=== PATIENT | female | born 1990 | race Caucasian/White ===

== ENCOUNTER 2017-01-27 16:44 | Inpatient (IN) | payer BC ==
[2017-01-27] MEDS ORDERED: Butorphanol 1 MG/ML SDV IVPUSH PRN (17:45)
[2017-01-27] MEDS ORDERED: Nalbuphine 10 MG/1 ML Vial IVPUSH PRN (17:45)
[2017-01-27] MEDS ORDERED: Water For Irrigation,Sterile 1,000 ML Container IRR PRN (17:45)
[2017-01-27] MEDS ORDERED: Sodium Chloride 0.9% 2.5 ML Syringe FLUSH PRN (17:45)
[2017-01-27] MEDS ORDERED: Oxytocin/0.9 % Sodium Chloride 30 UNIT/500 ML BAG IV SCH (17:45)
[2017-01-27] MEDS ORDERED: Sodium Chloride 0.9% 10 ML Syringe FLUSH PRN (17:45)
[2017-01-27] MEDS ORDERED: Methylergonovine 0.2 MG/1 ML Amp IM PRN (17:45)
[2017-01-27] MEDS ORDERED: Misoprostol 200 MCG Tab PO PRN (17:45)
[2017-01-27] MEDS ORDERED: Lactated Ringers 1,000 ML IV SCH (17:45)
[2017-01-27] MEDS ORDERED: Lidocaine 1% 50 ML MDV INJECT PRN (17:45)
[2017-01-27] MEDS ORDERED: Carboprost Tromethamine 250 MCG/1 ML Amp IM PRN (17:45)
[2017-01-27] MEDS ORDERED: fentaNYL 100 MCG/2 ML SDV ONE (21:27)
[2017-01-27] MEDS ORDERED: Ropivacaine 0.2% 2 MG/ML 20 ML SDV ONE (21:28)
[2017-01-27] MEDS ORDERED: Ropivacaine HCl/PF 100 ML ONE (21:28)
--- NOTE | 2017-01-27 22:10 | PCM.PREANE ---
Preanesthetic Assessment - Anesthesia/Transfusion/Family Hx Anesthesia History: Prior Anesthesia Without Reaction Family History of Anesthesia Reaction: No Transfusion History: No Prior Transfusion(s) Additional History: Denies any personal or family hx of bleeding or clotting problems - Review of Systems General: No Symptoms Pulmonary: No Symptoms Cardiovascular: No Symptoms Gastrointestinal: No Symptoms Neurological: No Symptoms Other: Reports: None - Physical Assessment Height: 1.63 m Weight: 99.79 kg ASA Class: 2 Mental Status: Alert & Oriented x3 Airway Class: Mallampati = 2 Dentition: Reports: Normal Dentition - Lab Values: Laboratory Last Values WBC 10.72 K/uL (4.0-11.0) 01/27/17 18:03 RBC 4.52 M/uL (4.30-5.90) 01/27/17 18:03 Hgb 13.6 g/dL (12.0-16.0) 01/27/17 18:03 Hct 39.1 % (36.0-46.0) 01/27/17 18:03 MCV 86.5 fL (80.0-98.0) 01/27/17 18:03 MCH 30.1 pg (27.0-32.0) 01/27/17 18:03 MCHC 34.8 g/dL (31.0-37.0) 01/27/17 18:03 RDW Std Deviation 40.7 fl (28.0-62.0) 01/27/17 18:03 RDW Coeff of Otis 13 % (11.0-15.0) 01/27/17 18:03 Plt Count 210 K/uL (150-400) 01/27/17 18:03 MPV 11.50 fL (7.40-12.00) 01/27/17 18:03 Nucleated RBC % 0.0 /100WBC 01/27/17 18:03 Nucleated RBCs # 0 K/uL 01/27/17 18:03 Urine Color YELLOW 01/27/17 19:05 Urine Appearance CLEAR 01/27/17 19:05 Urine pH 6.0 (5.0-8.0) 01/27/17 19:05 Ur Specific Hudson 1.015 (1.001-1.035) 01/27/17 19:05 Urine Protein NEGATIVE mg/dL (NEGATIVE) 01/27/17 19:05 Urine Glucose (UA) NEGATIVE mg/dL (NEGATIVE) 01/27/17 19:05 Urine Ketones NEGATIVE mg/dL (NEGATIVE) 01/27/17 19:05 Urine Occult Blood MODERATE (NEGATIVE) 01/27/17 19:05 Urine Nitrite NEGATIVE (NEGATIVE) 01/27/17 19:05 Urine Bilirubin NEGATIVE (NEGATIVE) 01/27/17 19:05 Urine Urobilinogen 0.2 EU/dL (<2.0) 01/27/17 19:05 Ur Leukocyte Esterase SMALL (NEGATIVE) 01/27/17 19:05 Membrane Rupture POSITIVE 01/27/17 17:03 Blood Type O POSITIVE 01/27/17 18:03 Antibody Screen NEGATIVE 01/27/17 18:03 - Allergies Allergies/Adverse Reactions: Allergies Allergy/AdvReac Type Severity Reaction Status Date / Time Sulfa (Sulfonamide Allergy Mild Itching Verified 07/30/14 23:16 Antibiotics) sulfasalazine Allergy Itching Verified 07/30/14 23:16 [From Sulfazine] unknown antibiotic Allergy Hives Uncoded 07/30/14 23:34 - Acknowledgements Anesthesia Type Planned: Epidural Pt an Appropriate Candidate for the Planned Anesthesia: Yes Alternatives and Risks of Anesthesia Discussed w Pt/Guardian: Yes Pt/Guardian Understands and Agrees with Anesthesia Plan: Yes 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: Endocrine/Metabolic History: Reports: Obesity/BMI 30+, Other (See Below) Other Endocrine/Metabolic History: Thyroid nodule - Past Surgical History Other Head Surgeries/Procedures: Thyroid nodule bx a few months ago (negative) HEENT Surgical History: Reports: Oral Surgery, Other (See Below) Other HEENT Surgeries/Procedures: wisdom teeth extraction - SUBSTANCE USE Smoking Status *Q: Never Smoker Second Hand Smoke Exposure: No Days Per Week of Alcohol Use: 1 Number of Drinks Per Day: 2 Total Drinks Per Week: 2 Recreational Drug Use History: No - HOME MEDS Home Medications: Home Meds Control Pills 07/30/14 [History] - CURRENT (IN HOUSE) MEDS Current Meds: Current Medications Butorphanol Tartrate (Stadol) 1 mg IVPUSH Q1H PRN PRN Reason: Pain Carboprost Tromethamine (Hemabate Ds) 250 mcg IM ASDIRECTED PRN PRN Reason: Post Hemorrhage Lactated Ringer's (Ringers, Lactated) 1,000 mls @ 150 mls/hr IV ASDIRECTED [facility] Oxytocin/Sodium Chloride (Oxytocin 30 Unit/500 Ml-Ns) 30 unit in 500 mls @ 999 mls/hr IV TITRATE [facility] Lidocaine HCl (Xylocaine 1%) 50 ml INJECT .ONCE PRN PRN Reason: Laceration repair Methylergonovine Maleate (Methergine) 0.2 mg IM ASDIRECTED PRN PRN Reason: Post Hemorrhage Misoprostol (Cytotec) 200 mcg PO .ONCE PRN PRN Reason: Post Hemorrhage Nalbuphine HCl (Nubain) 10 mg IVPUSH Q1H PRN PRN Reason: Pain (severe 7-10) Sodium Chloride (Saline Flush) 10 ml FLUSH ASDIRECTED PRN PRN Reason: Keep Vein Open Sodium Chloride (Saline Flush) 2.5 ml FLUSH ASDIRECTED PRN PRN Reason: Keep Vein Open Sterile Water (Sterile Water For Irrigation) 1,000 ml IRR ASDIRECTED PRN PRN Reason: delivery Discontinued Medications Fentanyl (Sublimaze) Confirm Administered Dose 300 mcg .ROUTE .STK-MED ONE Stop: 01/27/17 21:28 Ropivacaine (Naropin 0.2%) Confirm Administered Dose 100 mls @ as directed .ROUTE .STK-MED ONE Stop: 01/27/17 21:29 Ropivacaine (Naropin 0.2%) Confirm Administered Dose 20 ml .ROUTE .STK-MED ONE Stop: 01/27/17 21:29
[2017-01-28] MEDS ORDERED: Docusate Sodium 100 MG Cap PO PRN (04:03)
[2017-01-28] MEDS ORDERED: Bisacodyl 10 MG Supp RECTAL PRN (04:03)
[2017-01-28] MEDS ORDERED: Acetaminophen 500 MG Tab PO PRN ×2 (04:03)
[2017-01-28] MEDS ORDERED: oxyCODONE 5 MG Tab PO PRN (04:03)
[2017-01-28] MEDS ORDERED: Witch Hazel Medicated Pads 40/Jar TOP PRN (04:03)
[2017-01-28] MEDS ORDERED: Benzocaine/Menthol 20%-0.5% Spray 78 GM Cannister TOP PRN (04:03)
[2017-01-28] MEDS ORDERED: Lanolin 100% Cream 7 GM Tube TOP PRN (04:03)
[2017-01-28] MEDS ORDERED: Ibuprofen 400 MG Tab PO PRN (04:03)
[2017-01-28] MEDS ORDERED: Aluminum Hydroxide/Magnesium Hydroxide/Simethicone Susp 30 ML Cup PO PRN (04:03)
--- NOTE | 2017-01-28 04:53 | OR ---
SURGEON: Cristal Amato M.D. DATE OF PROCEDURE: 01/28/2017 PREOPERATIVE DIAGNOSES: 1. A 40-week intrauterine . 2. Spontaneous rupture of membranes. 3. Active labor. POSTOPERATIVE DIAGNOSES: 1. A 40-week intrauterine . 2. Spontaneous rupture of membranes. 3. Active labor. PROCEDURE: Spontaneous vaginal delivery, second-degree midline laceration repaired. CANDLE EXTRUSION MACHINE OPERATOR: BENJAMIN Pastrana4. ANESTHESIA: Epidural. ESTIMATED BLOOD LOSS: 400 mL. COMPLICATION: None. FINDINGS: Term male, score 9 at 1 minute and 9 at 5 minutes with a weight of 3320 grams, spontaneous delivery, intact placenta, three-vessel cord. DISPOSITION: Mom in LDRP and infant in nursery. PROCEDURE DETAILS: Ana Maria is a 26-year-old, G1, P0, at 39 and 6 weeks gestational age, who presented on the evening of 01/27/2017 with leakage of fluid that started approximately at 3:45 in the afternoon. On examination, she was found to have a positive AmniSure, clear fluid was returned. She was admitted, routine labs were drawn. Category 1 heart tones. The patient was observed and did begin ashish regularly and became increasingly uncomfortable and making cervical change. She underwent regional anesthesia in the form of epidural, became more comfortable, and continued to progress through the early childhood assistant hours. Shortly after 1 a.m., she was found to be complete. She began pushing efforts. Shortly after and pushed adequately for the next approximately an hour and a half, at that time she was able to push to a +3 station. I was called for delivery. Upon my arrival, the patient was placed in modified dorsal lithotomy position. She was prepped and draped in the usual aseptic manner. Continued with pushing efforts and was able deliver the infant's head atraumatically, spontaneously, followed by anterior shoulder, posterior shoulder, and remainder of the body without difficulty. The infant's oropharynx and nares bulb suctioned. Cord was clamped x2 and cut. was handed off to his mother with attending nursing staff at her side. Cord arterial, cord venous, and cord blood sampling was obtained. Light suprapubic pressure was applied while the placenta was delivered spontaneously intact. Vigorous fundal uterine massage was then applied while 30 units of Pitocin was delivered in 500 mL of IV fluid. Upon inspection of cervix, vaginal sidewalls, and perineum, there was found to be a second-degree midline laceration. This was repaired using 3-0 Vicryl in the usual fashion. Uterus remained firm at this juncture. Hemostasis was evident. Sponge count and needle counts were correct. The patient will remain in LDRP. in nursery. RUTH / MICHEL /[id number]
[2017-01-28] MEDS: Ibuprofen 800 MG Tab PO PRN ×2 (05:14→13:15)
--- NOTE | 2017-01-28 16:55 | PCM48HPAN ---
Post Anesthesia Note - EVALUATION WITHIN 48HRS OF ANESTHETIC Vital Signs in Normal Range: Yes Patient Participated in Evaluation: Yes Respiratory Function Stable: Yes Airway Patent: Yes Cardiovascular Function Stable: Yes Hydration Status Stable: Yes Pain Control Satisfactory: Yes Nausea and Vomiting Control Satisfactory: Yes Mental Status Recovered: Yes - COMMENTS/OBSERVATIONS Free Text/Narrative:: Pt reports return of full sensation and motor movement to lower extremities. Denies headache.
[2017-01-29 09:47] VITALS: BP 124/71
--- NOTE | 2017-01-29 10:39 | PCM.PNPP ---
- General Info Date of Service: 01/29/17 Admission Dx/Problem (Free Text): 26 yo P1 s/p , stable Subjective Update: Patient seen at bedside, she has 1-2 episode of involuntary loss of urine , no dysuria or frequency. Functional Status: Reports: Pain Controlled, Tolerating Diet, Ambulating, Urinating - Review of Systems General: Reports: No Symptoms HEENT: Reports: No Symptoms Pulmonary: Reports: No Symptoms Cardiovascular: Reports: No Symptoms Gastrointestinal: Reports: No Symptoms Genitourinary: Reports: No Symptoms Musculoskeletal: Reports: No Symptoms Skin: Reports: No Symptoms Neurological: Reports: No Symptoms - General Info Date of Service: 01/29/17 - Patient Data Vital Signs - Most Recent: Last Vital Signs Temp 36.6 C 01/29/17 08:00 Pulse 83 01/29/17 08:00 Resp 16 01/29/17 08:00 BP 124/71 01/29/17 08:00 Pulse Ox 98 01/29/17 08:00 Weight - Most Recent: 99.79 kg Lab Results - Last 24 Hours: Laboratory Results - last 24 hr 01/28/17 Range/Units 15:09 Hgb 12.1 (12.0-16.0) g/dL Hct 35.0 L (36.0-46.0) % Med Orders - Current: Current Medications Acetaminophen (Tylenol Extra Strength) 500 mg PO Q4H PRN PRN Reason: Pain Acetaminophen (Tylenol Extra Strength) 1,000 mg PO Q4H PRN PRN Reason: Pain Al Hydroxide/Mg Hydroxide (Mag-Al Plus) 30 ml PO Q8H PRN PRN Reason: Heartburn Benzocaine/Menthol (Dermoplast Pain Relief 20%-0.5% Peck) 78 gm TOP ASDIRECTED PRN PRN Reason: Perineal Comfort Measure Last Admin: 01/28/17 05:13 Dose: 1 can Bisacodyl (Dulcolax) 10 mg RECTAL .ONCE PRN PRN Reason: Constipation Carboprost Tromethamine (Hemabate Ds) 250 mcg IM ASDIRECTED PRN PRN Reason: Post Hemorrhage Docusate Sodium (Colace) 100 mg PO BID PRN PRN Reason: Constipation Emollient Ointment (Lansinoh Hpa) 0 gm TOP ASDIRECTED PRN PRN Reason: Sore Nipples Last Admin: 01/28/17 05:14 Dose: 1 tube Lactated Ringer's (Ringers, Lactated) 1,000 mls @ 150 mls/hr IV ASDIRECTED [facility] Oxytocin/Sodium Chloride (Oxytocin 30 Unit/500 Ml-Ns) 30 unit in 500 mls @ 999 mls/hr IV TITRATE [facility] Ibuprofen (Motrin) 400 mg PO Q4H PRN PRN Reason: Pain Ibuprofen (Motrin) 800 mg PO Q6H PRN PRN Reason: Pain Last Admin: 01/28/17 13:15 Dose: 800 mg Methylergonovine Maleate (Methergine) 0.2 mg IM ASDIRECTED PRN PRN Reason: Post Hemorrhage Nalbuphine HCl (Nubain) 10 mg IVPUSH Q1H PRN PRN Reason: Pain (severe 7-10) Oxycodone HCl (Oxycodone) 5 mg PO Q2H PRN PRN Reason: Pain Sodium Chloride (Saline Flush) 2.5 ml FLUSH ASDIRECTED PRN PRN Reason: Keep Vein Open Witch Jovita (Tucks) 1 pad TOP ASDIRECTED PRN PRN Reason: comfort care Last Admin: 01/28/17 05:14 Dose: 1 tub Discontinued Medications Butorphanol Tartrate (Stadol) 1 mg IVPUSH Q1H PRN PRN Reason: Pain Fentanyl (Sublimaze) Confirm Administered Dose 300 mcg .ROUTE .STK-MED ONE Stop: 01/27/17 21:28 Last Admin: 01/28/17 03:47 Dose: Not Given Ropivacaine (Naropin 0.2%) Confirm Administered Dose 100 mls @ as directed .ROUTE .STK-MED ONE Stop: 01/27/17 21:29 Last Admin: 01/28/17 03:47 Dose: Not Given Lidocaine HCl (Xylocaine 1%) 50 ml INJECT .ONCE PRN PRN Reason: Laceration repair Misoprostol (Cytotec) 200 mcg PO .ONCE PRN PRN Reason: Post Hemorrhage Ropivacaine (Naropin 0.2%) Confirm Administered Dose 20 ml .ROUTE .STK-MED ONE Stop: 01/27/17 21:29 Last Admin: 01/28/17 03:47 Dose: Not Given Sodium Chloride (Saline Flush) 10 ml FLUSH ASDIRECTED PRN PRN Reason: Keep Vein Open Sterile Water (Sterile Water For Irrigation) 1,000 ml IRR ASDIRECTED PRN PRN Reason: delivery - Infant Interaction Disposition, : [place] in Room with Family Infant Feeding: Continues to Breastfeed Support Person: , Sister - Recovery Exam Fundal Tone: Firm Fundal Level: 1 Fingerbreadths Below Umbilicus Fundal Placement: Midline Lochia Amount: Scant Lochia Color: Rubra/Red Perineum Description: Other (see below) Other Perinuem Description: 2nd degree laceration Episiotomy/Laceration: Approximated Bladder Status: Voiding Urinary Elimination: Voided - Exam General: Alert, Oriented HEENT: Pupils Equal Neck: Supple Lungs: Clear to Auscultation Cardiovascular: Regular Rate GI/Abdominal Exam: Normal Bowel Sounds Extremities: Normal Inspection Psy/Mental Status: Alert - Problem List & Annotations (1) Vaginal delivery SNOMED Code(s): 982363044 Code(s): O80 - ENCOUNTER FOR FULL-TERM UNCOMPLICATED DELIVERY Status: Acute Current Visit: Yes - Problem List Review Problem List Initiated/Reviewed/Updated: Yes - Assessment Assessment:: 26 yo P1 s/p stable - Plan Plan:: Plan; Pain control as need Sitz bath D/C home today Nothing in vagina for 6 weeks , no tampoons no sex
== END 2017-01-29 15:00 | disposition home or self-care (01) | DRG 560 ==
LOC: MW.OBCHECK 16:44 → MW.OB 16:46 → MW.OBCHECK 18:02 → OBSVTOIN 01-28 03:03 → MW.OB 01-28 07:00
PROVIDERS: ADMIT Obstetrics & Gynecology; ATTEND Obstetrics & Gynecology
PROC: 10E0XZZ Delivery of Products of Conception, External Approach (ICD-10-PCS; principal; 2017-01-28)
PROC: 0KQM0ZZ Repair Perineum Muscle, Open Approach (ICD-10-PCS; 2017-01-28)
DX: O42.02 Full-term premature rupture of membranes, onset of labor within 24 hours of rupture (principal); O70.1 Second degree perineal laceration during delivery; Z3A.39 39 weeks gestation of pregnancy; Z37.0 Single live birth
CPT/HCPCS: 01967; 36415; 51702; 59025; 59409; 81003; 84112; 85014; 85018; 85027; 86850; 86900; 86901; A9270-GY; J2795; J3010

== ENCOUNTER 2018-01-23 21:03 | Emergency (ER) | payer BC ==
[2018-01-23 21:23] VITALS: BP 137/84
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
== END 2018-01-23 23:50 | disposition home or self-care (01) ==
LOC: MW.ED 21:03
DX: O9A.211 Injury, poisoning and certain other consequences of external causes complicating pregnancy, first trimester (principal); S40.012A Contusion of left shoulder, initial encounter; Z3A.11 11 weeks gestation of pregnancy; Z88.2 Allergy status to sulfonamides; Z88.8 Allergy status to other drugs, medicaments and biological substances; V49.49XA Driver injured in collision with other motor vehicles in traffic accident, initial encounter
CPT/HCPCS: 76801; 76801-26; 99283; 99284-25

== ENCOUNTER 2018-08-10 20:39 | Inpatient (IN) | payer BC ==
[2018-08-10] MEDS ORDERED: Carboprost Tromethamine 250 MCG/1 ML Amp IM PRN (20:46)
[2018-08-10] MEDS ORDERED: Ondansetron 4 MG/2 ML SDV IV PRN (20:46)
[2018-08-10] MEDS ORDERED: Nalbuphine 10 MG/1 ML Vial IVPUSH PRN (20:46)
[2018-08-10] MEDS ORDERED: Lidocaine 1% 50 ML MDV INJECT PRN (20:46)
[2018-08-10] MEDS ORDERED: Sodium Chloride 0.9% 10 ML SDV IV PRN (20:46)
[2018-08-10] MEDS ORDERED: Misoprostol 200 MCG Tab PO PRN (20:46)
[2018-08-10] MEDS ORDERED: Butorphanol 1 MG/ML SDV IVPUSH PRN (20:46)
[2018-08-10] MEDS ORDERED: Sodium Chloride 0.9% 2.5 ML Syringe FLUSH PRN (20:46)
[2018-08-10] MEDS ORDERED: Tranexamic Acid 1,000 MG in Sodium Chloride 0.9% 100 ML IV PRN (20:46)
[2018-08-10] MEDS ORDERED: Methylergonovine 0.2 MG/1 ML Amp IM PRN (20:46)
[2018-08-10] MEDS ORDERED: Sodium Chloride 0.9% 10 ML Syringe FLUSH PRN (20:46)
[2018-08-10] MEDS ORDERED: Water For Irrigation,Sterile 1,000 ML Container IRR PRN (20:46)
[2018-08-10] MEDS ORDERED: Oxytocin/0.9 % Sodium Chloride 30 UNIT/500 ML BAG IV SCH (21:00)
[2018-08-10] MEDS ORDERED: Lactated Ringers 1,000 ML IV SCH (21:00)
[2018-08-10] MEDS ORDERED: Lidocaine HCl/EPINEPHrine 5 ML IJ ONE (22:18)
[2018-08-10] MEDS ORDERED: fentaNYL 100 MCG/2 ML SDV ONE (22:20)
--- NOTE | 2018-08-10 22:43 | PCM.PREANE ---
Preanesthetic Assessment - Procedure Proposed Procedure: Initially proposed PIPO, changed plan to intrathecal spinal due to patient labor progression. - Anesthesia/Transfusion/Family Hx Anesthesia History: Prior Anesthesia Without Reaction Transfusion History: No Prior Transfusion(s) - Review of Systems General: No Symptoms Pulmonary: No Symptoms Cardiovascular: No Symptoms Gastrointestinal: Other (GERD) Neurological: No Symptoms Other: Reports: Thyroid Problems (Graves for this . Resolved currently. ) - Physical Assessment ASA Class: 2 Mental Status: Alert & Oriented x3 Airway Class: Mallampati = 2 Dentition: Reports: Normal Dentition Thyro-Mental Finger Breadths: 3 Mouth Opening Finger Breadths: 3 ROM/Head Extension: Full Lungs: Clear to Auscultation, Normal Respiratory Effort Cardiovascular: Regular Rate, Regular Rhythm - Lab Values: Laboratory Last Values WBC 11.03 K/uL (4.0-11.0) H 08/10/18 21:54 RBC 4.88 M/uL (4.30-5.90) 08/10/18 21:54 Hgb 13.1 g/dL (12.0-16.0) 08/10/18 21:54 Hct 39.4 % (36.0-46.0) 08/10/18 21:54 MCV 80.7 fL (80.0-98.0) 08/10/18 21:54 MCH 26.8 pg (27.0-32.0) L 08/10/18 21:54 MCHC 33.2 g/dL (31.0-37.0) 08/10/18 21:54 RDW Std Deviation 37.0 fl (28.0-62.0) 08/10/18 21:54 RDW Coeff of Otis 13 % (11.0-15.0) 08/10/18 21:54 Plt Count 278 K/uL (150-400) 08/10/18 21:54 MPV 11.30 fL (7.40-12.00) 08/10/18 21:54 Nucleated RBC % 0.0 /100WBC 08/10/18 21:54 Nucleated RBCs # 0 K/uL 08/10/18 21:54 - Allergies Allergies/Adverse Reactions: Allergies Allergy/AdvReac Type Severity Reaction Status Date / Time Sulfa (Sulfonamide Allergy Mild Itching Verified 01/23/18 22:36 Antibiotics) sulfasalazine Allergy Itching Verified 01/23/18 22:36 [From Sulfazine] unknown antibiotic Allergy Hives Uncoded 01/23/18 22:36 - Acknowledgements Anesthesia Type Planned: Spinal Pt an Appropriate Candidate for the Planned Anesthesia: Yes Alternatives and Risks of Anesthesia Discussed w Pt/Guardian: Yes Pt/Guardian Understands and Agrees with Anesthesia Plan: Yes PreAnesthesia Questionnaire HEENT History: Reports: None Cardiovascular History: Reports: None Respiratory History: Reports: None Gastrointestinal History: Reports: GERD Genitourinary History: Reports: None COAT AGENT History: Reports: : 2 Para: 1 LMP (Approximate): Musculoskeletal History: Reports: None Neurological History: Reports: None Psychiatric History: Reports: None Endocrine/Metabolic History: Reports: Obesity/BMI 30+, Other (See Below) Other Endocrine/Metabolic History: Thyroid nodule, 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 Hematologic History: Reports: None Immunologic History: Reports: None Oncologic (Cancer) History: Reports: None Dermatologic History: Reports: None - Infectious Disease History Infectious Disease History: Reports: None - Past Surgical History Head Surgeries/Procedures: Reports: None HEENT Surgical History: Reports: Oral Surgery, Other (See Below) Other HEENT Surgeries/Procedures: wisdom teeth extraction - HOME MEDS Home Medications: Home Meds . [No Known Home Meds] 01/23/18 [History] - CURRENT (IN HOUSE) MEDS Current Meds: Current Medications Butorphanol Tartrate (Stadol) 1 mg IVPUSH Q1H PRN PRN Reason: Pain Carboprost Tromethamine (Hemabate Ds) 250 mcg IM ASDIRECTED PRN PRN Reason: Post Hemorrhage Lactated Ringer's (Ringers, Lactated) 1,000 mls @ 150 mls/hr IV ASDIRECTED EDDA Oxytocin/Sodium Chloride (Oxytocin 30 Unit/500 Ml-Ns) 30 unit in 500 mls @ 999 mls/hr IV TITRATE EDDA Tranexamic Acid 1,000 mg/ (Sodium Chloride) 110 mls @ 660 mls/hr IV ONETIME PRN PRN Reason: Bleeding Lidocaine HCl (Xylocaine 1%) 50 ml INJECT ONETIME PRN PRN Reason: Laceration repair Methylergonovine Maleate (Methergine) 0.2 mg IM ASDIRECTED PRN PRN Reason: Post Hemorrhage Misoprostol (Cytotec) 200 mcg PO ONETIME PRN PRN Reason: Post Hemorrhage Nalbuphine HCl (Nubain) 10 mg IVPUSH Q1H PRN PRN Reason: Pain (severe 7-10) Ondansetron HCl (Zofran) 4 mg IV Q6H PRN PRN Reason: Nausea/Vomiting Sodium Chloride (Saline Flush) 10 ml FLUSH ASDIRECTED PRN PRN Reason: Keep Vein Open Sodium Chloride (Saline Flush) 2.5 ml FLUSH ASDIRECTED PRN PRN Reason: Keep Vein Open Sodium Chloride (Normal Saline) 10 ml IV ASDIRECTED PRN PRN Reason: IV Use Sterile Water (Sterile Water For Irrigation) 1,000 ml IRR ASDIRECTED PRN PRN Reason: delivery Discontinued Medications Fentanyl (Sublimaze) Confirm Administered Dose 100 mcg .ROUTE .STK-MED ONE Stop: 08/10/18 22:21 Fentanyl/Bupivacaine HCl (Ovafoptv-Skzmb-Ku 2 Mcg/Ml-0.125%) Confirm Administered Dose 100 mls @ as directed .ROUTE .STK-MED ONE Stop: 08/10/18 22:19 Lidocaine/Epinephrine (Lidocaine 1.5%-Epi 1:200,000) Confirm Administered Dose 5 ml IJ .STK-MED ONE Stop: 08/10/18 22:19
--- NOTE | 2018-08-10 23:12 | PCM.SN ---
- Free Text/Narrative Note: 08/10/18 at 2154: Called into LDR 1 for difficult IV start. Ultrasound used to start 20g 1.88 inch IV x 1 attempt to right forearm. Patient tolerated well.
--- NOTE | 2018-08-10 23:16 | PCM.DEL ---
L & D Note - General Info Date of Service: 08/10/18 (, OP position.) - Delivery Note Labor: Spontaneous Delivery Outcome: Livebirth Delivery Method: Spontaneous Vaginal Delivery-Single Presentation: OP Nuchal Cord: None Anesthesia Type: Intrathecal Amniotic Fluid Description: Clear Episiotomy Type: None Laceration: None Placenta: Intact, Spontaneous Resuscitation Needed: No - General Info Date of Service: 08/10/18 - Patient Data Lab Results Last 24 Hours: Laboratory Results - last 24 hr 08/10/18 Range/Units 21:54 WBC 11.03 H (4.0-11.0) K/uL RBC 4.88 (4.30-5.90) M/uL Hgb 13.1 (12.0-16.0) g/dL Hct 39.4 (36.0-46.0) % MCV 80.7 (80.0-98.0) fL MCH 26.8 L (27.0-32.0) pg MCHC 33.2 (31.0-37.0) g/dL RDW Std Deviation 37.0 (28.0-62.0) fl RDW Coeff of Otis 13 (11.0-15.0) % Plt Count 278 (150-400) K/uL MPV 11.30 (7.40-12.00) fL Nucleated RBC % 0.0 /100WBC Nucleated RBCs # 0 K/uL Med Orders - Current: Current Medications Butorphanol Tartrate (Stadol) 1 mg IVPUSH Q1H PRN PRN Reason: Pain Carboprost Tromethamine (Hemabate Ds) 250 mcg IM ASDIRECTED PRN PRN Reason: Post Hemorrhage Lactated Ringer's (Ringers, Lactated) 1,000 mls @ 150 mls/hr IV ASDIRECTED EDDA Oxytocin/Sodium Chloride (Oxytocin 30 Unit/500 Ml-Ns) 30 unit in 500 mls @ 999 mls/hr IV TITRATE EDDA Tranexamic Acid 1,000 mg/ (Sodium Chloride) 110 mls @ 660 mls/hr IV ONETIME PRN PRN Reason: Bleeding Lidocaine HCl (Xylocaine 1%) 50 ml INJECT ONETIME PRN PRN Reason: Laceration repair Methylergonovine Maleate (Methergine) 0.2 mg IM ASDIRECTED PRN PRN Reason: Post Hemorrhage Misoprostol (Cytotec) 200 mcg PO ONETIME PRN PRN Reason: Post Hemorrhage Nalbuphine HCl (Nubain) 10 mg IVPUSH Q1H PRN PRN Reason: Pain (severe 7-10) Ondansetron HCl (Zofran) 4 mg IV Q6H PRN PRN Reason: Nausea/Vomiting Sodium Chloride (Saline Flush) 10 ml FLUSH ASDIRECTED PRN PRN Reason: Keep Vein Open Sodium Chloride (Saline Flush) 2.5 ml FLUSH ASDIRECTED PRN PRN Reason: Keep Vein Open Sodium Chloride (Normal Saline) 10 ml IV ASDIRECTED PRN PRN Reason: IV Use Sterile Water (Sterile Water For Irrigation) 1,000 ml IRR ASDIRECTED PRN PRN Reason: delivery Discontinued Medications Fentanyl (Sublimaze) Confirm Administered Dose 100 mcg .ROUTE .STK-MED ONE Stop: 08/10/18 22:21 Fentanyl/Bupivacaine HCl (Pxxxqdyi-Zxdcn-Ug 2 Mcg/Ml-0.125%) Confirm Administered Dose 100 mls @ as directed .ROUTE .STK-MED ONE Stop: 08/10/18 22:19 Lidocaine/Epinephrine (Lidocaine 1.5%-Epi 1:200,000) Confirm Administered Dose 5 ml IJ .STK-MED ONE Stop: 08/10/18 22:19 - Problem List & Annotations (1) Vaginal delivery SNOMED Code(s): 255427217 Code(s): O80 - ENCOUNTER FOR FULL-TERM UNCOMPLICATED DELIVERY Status: Acute Current Visit: Yes - Problem List Review Problem List Initiated/Reviewed/Updated: Yes - My Orders Last 24 Hours: My Active Orders 08/10/18 20:46 Patient Status [ADT] Routine Heart Tones [RC] CONTINUOUS Non Stress Test [RC] PER UNIT ROUTINE May Shower [RC] ASDIRECTED Notify Provider [RC] PRN Up ad Heather [RC] ASDIRECTED Vaginal Exam [RC] PRN Vital Signs [RC] PER UNIT ROUTINE Butorphanol [Stadol] 1 mg IVPUSH Q1H PRN Carboprost Tromethamine [Hemabate DS] 250 mcg IM ASDIRECTED PRN Lidocaine 1% [Xylocaine 1%] 50 ml INJECT ONETIME PRN Methylergonovine [Methergine] 0.2 mg IM ASDIRECTED PRN Nalbuphine [Nubain] 10 mg IVPUSH Q1H PRN Ondansetron [Zofran] 4 mg IV Q6H PRN Sodium Chloride 0.9% [Normal Saline] 10 ml IV ASDIRECTED PRN Sodium Chloride 0.9% [Saline Flush] 10 ml FLUSH ASDIRECTED PRN Sodium Chloride 0.9% [Saline Flush] 2.5 ml FLUSH ASDIRECTED PRN Tranexamic Acid [Cyklokapron] 1,000 mg Sodium Chloride 0.9% [Normal Saline] 100 ml IV ONETIME Water For Irrigation,Sterile [Sterile Water for Irrigation] 1,000 ml IRR ASDIRECTED PRN miSOPROStol [Cytotec] 200 mcg PO ONETIME PRN Scalp Electrode [WOMSER] Per Unit Routine Peripheral IV Insertion Adult [OM.PC] Routine Resuscitation Status Routine 08/10/18 21:00 Lactated Ringers [Ringers, Lactated] 1,000 ml IV ASDIRECTED Oxytocin/0.9 % Sodium Chloride [Oxytocin 30 Unit/500 ML-NS] 30 unit in 500 ml IV TITRATE 08/10/18 21:29 ALANINE AMINOTRANSFERASE,ALT [CHEM] Stat ASPARTATE AMNIOTRANSFERASE,AST [CHEM] Stat 08/10/18 21:31 PROTEIN/CREATININE RATIO,URINE [URCHEM] Stat 08/10/18 21:54 TYPE AND SCREEN [BBK] Routine 08/11/18 Breakfast Clear Liquid Diet [DIET] - Assessment Assessment:: . Mother and baby both well. BPs have been high, severe range during intrathecal but at that time the cuff was not correctly positioned. Post-delivery BP 140/60. Plt normal. Urine to go to lab. Pt declines AST and ALT - they were not drawn by the sales clerk supervisor at time of CBC. - Plan Plan:: Mother and baby to PP care. Clinical observation of BPs. Urine PCR pending.
[2018-08-10] MEDS ORDERED: Lanolin 100% Cream 7 GM Tube TOP PRN (23:17)
[2018-08-10] MEDS ORDERED: Benzocaine/Menthol 20%-0.5% Spray 78 GM Cannister TOP PRN (23:17)
[2018-08-10] MEDS ORDERED: Witch Hazel Medicated Pads 40/Jar TOP PRN (23:17)
[2018-08-10] MEDS ORDERED: Docusate Sodium 100 MG Cap PO PRN (23:17)
[2018-08-10] MEDS ORDERED: Acetaminophen 500 MG Tab PO PRN ×2 (23:17)
[2018-08-10] MEDS ORDERED: Bisacodyl 10 MG Supp RECTAL PRN (23:17)
[2018-08-10] MEDS ORDERED: Ibuprofen 400 MG Tab PO PRN (23:17)
[2018-08-10] MEDS ORDERED: oxyCODONE 5 MG Tab PO PRN (23:17)
--- NOTE | 2018-08-11 08:02 | PCM.PNPP ---
<Neeta Lewis - Last Filed: 08/11/18 07:57> - General Info Date of Service: 08/11/18 Functional Status: Reports: Pain Controlled, Tolerating Diet, Ambulating, Urinating - Review of Systems General: Denies: Fever, Weakness, Fatigue Pulmonary: Denies: Shortness of Breath, Pleuritic Chest Pain, Cough Cardiovascular: Denies: Chest Pain, Palpitations, Dyspnea on Exertion Gastrointestinal: Denies: Abdominal Pain Genitourinary: Denies: Dysuria - General Info Date of Service: 08/11/18 - Patient Data Vital Signs - Most Recent: Last Vital Signs Temp 36.4 C 08/11/18 07:00 Pulse 75 08/11/18 07:00 Resp 16 08/11/18 07:00 BP 134/72 08/11/18 07:00 Pulse Ox 95 08/11/18 07:00 Weight - Most Recent: 98.883 kg Lab Results - Last 24 Hours: Laboratory Results - last 24 hr 08/10/18 08/10/18 08/10/18 Range/Units 21:54 21:54 23:00 WBC 11.03 H (4.0-11.0) K/uL RBC 4.88 (4.30-5.90) M/uL Hgb 13.1 (12.0-16.0) g/dL Hct 39.4 (36.0-46.0) % MCV 80.7 (80.0-98.0) fL MCH 26.8 L (27.0-32.0) pg MCHC 33.2 (31.0-37.0) g/dL RDW Std Deviation 37.0 (28.0-62.0) fl RDW Coeff of Otis 13 (11.0-15.0) % Plt Count 278 (150-400) K/uL MPV 11.30 (7.40-12.00) fL Nucleated RBC % 0.0 /100WBC Nucleated RBCs # 0 K/uL Ur Random Creatinine 213.8 mg/dL U Random Total Protein 46.9 H (<11.9) mg/dL Protein/Creatinin Ratio 0.2 Blood Type O POSITIVE Antibody Screen NEGATIVE 08/11/18 Range/Units 04:53 WBC (4.0-11.0) K/uL RBC (4.30-5.90) M/uL Hgb 11.4 L (12.0-16.0) g/dL Hct 34.5 L (36.0-46.0) % MCV (80.0-98.0) fL MCH (27.0-32.0) pg MCHC (31.0-37.0) g/dL RDW Std Deviation (28.0-62.0) fl RDW Coeff of Otis (11.0-15.0) % Plt Count (150-400) K/uL MPV (7.40-12.00) fL Nucleated RBC % /100WBC Nucleated RBCs # K/uL Ur Random Creatinine mg/dL U Random Total Protein (<11.9) mg/dL Protein/Creatinin Ratio Blood Type Antibody Screen Med Orders - Current: Current Medications Acetaminophen (Tylenol Extra Strength) 500 mg PO Q4H PRN PRN Reason: Pain Acetaminophen (Tylenol Extra Strength) 1,000 mg PO Q4H PRN PRN Reason: Pain Benzocaine/Menthol (Dermoplast Pain Relief 20%-0.5% [place]) 78 gm TOP ASDIRECTED PRN PRN Reason: Perineal Comfort Measure Bisacodyl (Dulcolax) 10 mg RECTAL ONETIME PRN PRN Reason: Constipation Docusate Sodium (Colace) 100 mg PO BID PRN PRN Reason: Constipation Emollient Ointment (Lansinoh Hpa) 0 gm TOP ASDIRECTED PRN PRN Reason: Sore Nipples Ibuprofen (Motrin) 400 mg PO Q4H PRN PRN Reason: Pain Ibuprofen (Motrin) 800 mg PO Q6H PRN PRN Reason: Pain Oxycodone HCl (Oxycodone) 5 mg PO Q2H PRN PRN Reason: Pain Witch Jovita (Tucks) 1 pad TOP ASDIRECTED PRN PRN Reason: comfort care Discontinued Medications Butorphanol Tartrate (Stadol) 1 mg IVPUSH Q1H PRN PRN Reason: Pain Carboprost Tromethamine (Hemabate Ds) 250 mcg IM ASDIRECTED PRN PRN Reason: Post Hemorrhage Fentanyl (Sublimaze) Confirm Administered Dose 100 mcg .ROUTE .STK-MED ONE Stop: 08/10/18 22:21 Lactated Ringer's (Ringers, Lactated) 1,000 mls @ 150 mls/hr IV ASDIRECTED [facility] Last Admin: 08/10/18 21:52 Dose: 999 mls/hr Oxytocin/Sodium Chloride (Oxytocin 30 Unit/500 Ml-Ns) 30 unit in 500 mls @ 999 mls/hr IV TITRATE [facility] Last Admin: 08/10/18 22:56 Dose: 999 mls/hr Tranexamic Acid 1,000 mg/ (Sodium Chloride) 110 mls @ 660 mls/hr IV ONETIME PRN PRN Reason: Bleeding Fentanyl/Bupivacaine HCl (Vajjmuuc-Jhuge-Ts 2 Mcg/Ml-0.125%) Confirm Administered Dose 100 mls @ as directed .ROUTE .STK-MED ONE Stop: 08/10/18 22:19 Lidocaine HCl (Xylocaine 1%) 50 ml INJECT ONETIME PRN PRN Reason: Laceration repair Lidocaine/Epinephrine (Lidocaine 1.5%-Epi 1:200,000) Confirm Administered Dose 5 ml IJ .STServerPilot-MED ONE Stop: 08/10/18 22:19 Methylergonovine Maleate (Methergine) 0.2 mg IM ASDIRECTED PRN PRN Reason: Post Hemorrhage Misoprostol (Cytotec) 200 mcg PO ONETIME PRN PRN Reason: Post Hemorrhage Nalbuphine HCl (Nubain) 10 mg IVPUSH Q1H PRN PRN Reason: Pain (severe 7-10) Ondansetron HCl (Zofran) 4 mg IV Q6H PRN PRN Reason: Nausea/Vomiting Sodium Chloride (Saline Flush) 10 ml FLUSH ASDIRECTED PRN PRN Reason: Keep Vein Open Sodium Chloride (Saline Flush) 2.5 ml FLUSH ASDIRECTED PRN PRN Reason: Keep Vein Open Sodium Chloride (Normal Saline) 10 ml IV ASDIRECTED PRN PRN Reason: IV Use Sterile Water (Sterile Water For Irrigation) 1,000 ml IRR ASDIRECTED PRN PRN Reason: delivery Last Admin: 08/11/18 01:07 Dose: 1,000 ml - Infant Interaction Disposition, : in Room with Family Interaction: Holding Feeding: Breastfed Infant; Nursed Well Support Person: - Recovery Exam Fundal Tone: Firm Fundal Level: 1 Fingerbreadths Above Umbilicus Fundal Placement: Midline Lochia Amount: Small Lochia Color: Rubra/Red Perineum Description: Intact, Minimal Bruising/Swelling Episiotomy/Laceration: None Bladder Status: Voiding Urinary Elimination: Voided - Exam General: Alert, Oriented Neck: Supple Lungs: Clear to Auscultation, Normal Respiratory Effort Cardiovascular: Regular Rate, Regular Rhythm GI/Abdominal Exam: Normal Bowel Sounds, Soft, Non-Tender, No Distention, No Mass Extremities: Normal Inspection, Non-Tender, Normal Capillary Refill, Pedal Edema (trace) Skin: Warm, Dry, Intact - Problem List & Annotations (1) Vaginal delivery SNOMED Code(s): 383655558 Code(s): O80 - ENCOUNTER FOR FULL-TERM UNCOMPLICATED DELIVERY Status: Acute Current Visit: Yes - Problem List Review Problem List Initiated/Reviewed/Updated: Yes - Assessment Assessment:: PPD #1 s/p . BPs are normalizing, ranging 130s/60-70s. Denies LEYVA vision changes, or mid-epigastric pain. Moderate Lochia with golf ball size clot passed this morning. Uterus is midline and firm. Will continue to monitor today. Anticipate discharge home tomorrow. - Plan Plan:: Continue routine cares. Will continue to monitor BPs. Encouraged to breast feed. Aim for discharge home tomorrow. <Cristal Amato - Last Filed: 08/11/18 08:53> - Patient Data Vital Signs - Most Recent: Last Vital Signs Temp 36.4 C 08/11/18 07:00 Pulse 75 08/11/18 07:00 Resp 16 08/11/18 07:00 BP 134/72 08/11/18 07:00 Pulse Ox 95 08/11/18 07:00 Lab Results - Last 24 Hours: Laboratory Results - last 24 hr 08/10/18 08/10/18 08/10/18 Range/Units 21:54 21:54 23:00 WBC 11.03 H (4.0-11.0) K/uL RBC 4.88 (4.30-5.90) M/uL Hgb 13.1 (12.0-16.0) g/dL Hct 39.4 (36.0-46.0) % MCV 80.7 (80.0-98.0) fL MCH 26.8 L (27.0-32.0) pg MCHC 33.2 (31.0-37.0) g/dL RDW Std Deviation 37.0 (28.0-62.0) fl RDW Coeff of Otis 13 (11.0-15.0) % Plt Count 278 (150-400) K/uL MPV 11.30 (7.40-12.00) fL Nucleated RBC % 0.0 /100WBC Nucleated RBCs # 0 K/uL Ur Random Creatinine 213.8 mg/dL U Random Total Protein 46.9 H (<11.9) mg/dL Protein/Creatinin Ratio 0.2 Blood Type O POSITIVE Antibody Screen NEGATIVE 08/11/18 Range/Units 04:53 WBC (4.0-11.0) K/uL RBC (4.30-5.90) M/uL Hgb 11.4 L (12.0-16.0) g/dL Hct 34.5 L (36.0-46.0) % MCV (80.0-98.0) fL MCH (27.0-32.0) pg MCHC (31.0-37.0) g/dL RDW Std Deviation (28.0-62.0) fl RDW Coeff of Otis (11.0-15.0) % Plt Count (150-400) K/uL MPV (7.40-12.00) fL Nucleated RBC % /100WBC Nucleated RBCs # K/uL Ur Random Creatinine mg/dL U Random Total Protein (<11.9) mg/dL Protein/Creatinin Ratio Blood Type Antibody Screen Med Orders - Current: Current Medications Acetaminophen (Tylenol Extra Strength) 500 mg PO Q4H PRN PRN Reason: Pain Acetaminophen (Tylenol Extra Strength) 1,000 mg PO Q4H PRN PRN Reason: Pain Benzocaine/Menthol (Dermoplast Pain Relief 20%-0.5% [place]) 78 gm TOP ASDIRECTED PRN PRN Reason: Perineal Comfort Measure Bisacodyl (Dulcolax) 10 mg RECTAL ONETIME PRN PRN Reason: Constipation Docusate Sodium (Colace) 100 mg PO BID PRN PRN Reason: Constipation Emollient Ointment (Lansinoh Hpa) 0 gm TOP ASDIRECTED PRN PRN Reason: Sore Nipples Ibuprofen (Motrin) 400 mg PO Q4H PRN PRN Reason: Pain Ibuprofen (Motrin) 800 mg PO Q6H PRN PRN Reason: Pain Oxycodone HCl (Oxycodone) 5 mg PO Q2H PRN PRN Reason: Pain Witch Jovita (Tucks) 1 pad TOP ASDIRECTED PRN PRN Reason: comfort care Discontinued Medications Butorphanol Tartrate (Stadol) 1 mg IVPUSH Q1H PRN PRN Reason: Pain Carboprost Tromethamine (Hemabate Ds) 250 mcg IM ASDIRECTED PRN PRN Reason: Post Hemorrhage Fentanyl (Sublimaze) Confirm Administered Dose 100 mcg .ROUTE .STK-MED ONE Stop: 08/10/18 22:21 Lactated Ringer's (Ringers, Lactated) 1,000 mls @ 150 mls/hr IV ASDIRECTED [facility] Last Admin: 08/10/18 21:52 Dose: 999 mls/hr Oxytocin/Sodium Chloride (Oxytocin 30 Unit/500 Ml-Ns) 30 unit in 500 mls @ 999 mls/hr IV TITRATE [facility] Last Admin: 08/10/18 22:56 Dose: 999 mls/hr Tranexamic Acid 1,000 mg/ (Sodium Chloride) 110 mls @ 660 mls/hr IV ONETIME PRN PRN Reason: Bleeding Fentanyl/Bupivacaine HCl (Ilksrclc-Sclhc-Js 2 Mcg/Ml-0.125%) Confirm Administered Dose 100 mls @ as directed .ROUTE .STServerPilot-MED ONE Stop: 08/10/18 22:19 Lidocaine HCl (Xylocaine 1%) 50 ml INJECT ONETIME PRN PRN Reason: Laceration repair Lidocaine/Epinephrine (Lidocaine 1.5%-Epi 1:200,000) Confirm Administered Dose 5 ml IJ .STK-MED ONE Stop: 08/10/18 22:19 Methylergonovine Maleate (Methergine) 0.2 mg IM ASDIRECTED PRN PRN Reason: Post Hemorrhage Misoprostol (Cytotec) 200 mcg PO ONETIME PRN PRN Reason: Post Hemorrhage Nalbuphine HCl (Nubain) 10 mg IVPUSH Q1H PRN PRN Reason: Pain (severe 7-10) Ondansetron HCl (Zofran) 4 mg IV Q6H PRN PRN Reason: Nausea/Vomiting Sodium Chloride (Saline Flush) 10 ml FLUSH ASDIRECTED PRN PRN Reason: Keep Vein Open Sodium Chloride (Saline Flush) 2.5 ml FLUSH ASDIRECTED PRN PRN Reason: Keep Vein Open Sodium Chloride (Normal Saline) 10 ml IV ASDIRECTED PRN PRN Reason: IV Use Sterile Water (Sterile Water For Irrigation) 1,000 ml IRR ASDIRECTED PRN PRN Reason: delivery Last Admin: 08/11/18 01:07 Dose: 1,000 ml - Plan Plan:: Patient seen and examined, agree with above
[2018-08-11] MEDS: Ibuprofen 800 MG Tab PO PRN ×2 (09:31→21:06)
[2018-08-12 07:41] VITALS: BP 128/68
--- NOTE | 2018-08-12 07:50 | PCM48HPAN ---
Post Anesthesia Note - EVALUATION WITHIN 48HRS OF ANESTHETIC Vital Signs in Normal Range: Yes Patient Participated in Evaluation: Yes Respiratory Function Stable: Yes Airway Patent: Yes Cardiovascular Function Stable: Yes Hydration Status Stable: Yes Pain Control Satisfactory: Yes Nausea and Vomiting Control Satisfactory: Yes Mental Status Recovered: Yes Resp Rate: 16
--- NOTE | 2018-08-12 09:44 | PCM.PNPP ---
- General Info Date of Service: 08/12/18 Functional Status: Reports: Pain Controlled, Tolerating Diet, Ambulating, Urinating - Review of Systems General: Denies: Fever, Weakness, Fatigue Pulmonary: Denies: Shortness of Breath Cardiovascular: Denies: Chest Pain, Palpitations, Lightheadedness Gastrointestinal: Reports: Flatus. Denies: Abdominal Pain, Nausea, Vomiting Genitourinary: Denies: Flank Pain Musculoskeletal: Reports: No Symptoms Skin: Reports: No Symptoms Neurological: Reports: No Symptoms Psychiatric: Reports: No Symptoms - General Info Date of Service: 08/12/18 - Patient Data Vital Signs - Most Recent: Last Vital Signs Temp 36.4 C 08/12/18 07:00 Pulse 64 08/12/18 07:00 Resp 16 08/12/18 07:50 BP 128/68 08/12/18 07:00 Pulse Ox 98 08/12/18 07:00 Weight - Most Recent: 98.883 kg Med Orders - Current: Current Medications Acetaminophen (Tylenol Extra Strength) 500 mg PO Q4H PRN PRN Reason: Pain Acetaminophen (Tylenol Extra Strength) 1,000 mg PO Q4H PRN PRN Reason: Pain Last Admin: 08/11/18 14:26 Dose: 1,000 mg Benzocaine/Menthol (Dermoplast Pain Relief 20%-0.5% [place]) 78 gm TOP ASDIRECTED PRN PRN Reason: Perineal Comfort Measure Bisacodyl (Dulcolax) 10 mg RECTAL ONETIME PRN PRN Reason: Constipation Docusate Sodium (Colace) 100 mg PO BID PRN PRN Reason: Constipation Last Admin: 08/11/18 21:06 Dose: 100 mg Emollient Ointment (Lansinoh Hpa) 0 gm TOP ASDIRECTED PRN PRN Reason: Sore Nipples Ibuprofen (Motrin) 400 mg PO Q4H PRN PRN Reason: Pain Ibuprofen (Motrin) 800 mg PO Q6H PRN PRN Reason: Pain Last Admin: 08/11/18 21:06 Dose: 800 mg Oxycodone HCl (Oxycodone) 5 mg PO Q2H PRN PRN Reason: Pain Witch Jovita (Tucks) 1 pad TOP ASDIRECTED PRN PRN Reason: comfort care Discontinued Medications Butorphanol Tartrate (Stadol) 1 mg IVPUSH Q1H PRN PRN Reason: Pain Carboprost Tromethamine (Hemabate Ds) 250 mcg IM ASDIRECTED PRN PRN Reason: Post Hemorrhage Fentanyl (Sublimaze) Confirm Administered Dose 100 mcg .ROUTE .STK-MED ONE Stop: 08/10/18 22:21 Lactated Ringer's (Ringers, Lactated) 1,000 mls @ 150 mls/hr IV ASDIRECTED [facility] Last Admin: 08/10/18 21:52 Dose: 999 mls/hr Oxytocin/Sodium Chloride (Oxytocin 30 Unit/500 Ml-Ns) 30 unit in 500 mls @ 999 mls/hr IV TITRATE [facility] Last Admin: 08/10/18 22:56 Dose: 999 mls/hr Tranexamic Acid 1,000 mg/ (Sodium Chloride) 110 mls @ 660 mls/hr IV ONETIME PRN PRN Reason: Bleeding Fentanyl/Bupivacaine HCl ([id number] 2 Mcg/Ml-0.125%) Confirm Administered Dose 100 mls @ as directed .ROUTE .[place]-MED ONE Stop: 08/10/18 22:19 Lidocaine HCl (Xylocaine 1%) 50 ml INJECT ONETIME PRN PRN Reason: Laceration repair Lidocaine/Epinephrine (Lidocaine 1.5%-Epi 1:200,000) Confirm Administered Dose 5 ml IJ .STmDialog-MED ONE Stop: 08/10/18 22:19 Methylergonovine Maleate (Methergine) 0.2 mg IM ASDIRECTED PRN PRN Reason: Post Hemorrhage Misoprostol (Cytotec) 200 mcg PO ONETIME PRN PRN Reason: Post Hemorrhage Nalbuphine HCl (Nubain) 10 mg IVPUSH Q1H PRN PRN Reason: Pain (severe 7-10) Ondansetron HCl (Zofran) 4 mg IV Q6H PRN PRN Reason: Nausea/Vomiting Sodium Chloride (Saline Flush) 10 ml FLUSH ASDIRECTED PRN PRN Reason: Keep Vein Open Sodium Chloride (Saline Flush) 2.5 ml FLUSH ASDIRECTED PRN PRN Reason: Keep Vein Open Sodium Chloride (Normal Saline) 10 ml IV ASDIRECTED PRN PRN Reason: IV Use Sterile Water (Sterile Water For Irrigation) 1,000 ml IRR ASDIRECTED PRN PRN Reason: delivery Last Admin: 08/11/18 01:07 Dose: 1,000 ml - Interaction Disposition, : in Room with Family Infant Interaction: Holding Infant Feeding: Breastfed Infant; Nursed Well Support Person: - Recovery Exam Fundal Tone: Firm Fundal Level: 1 Fingerbreadths Below Umbilicus Fundal Placement: Midline Lochia Amount: Small Lochia Color: Rubra/Red Perineum Description: Intact, Minimal Bruising/Swelling Episiotomy/Laceration: None Bladder Status: Voiding Urinary Elimination: Voided - Exam General: Alert, Oriented Lungs: Normal Respiratory Effort GI/Abdominal Exam: Soft, Non-Tender Extremities: Pedal Edema (trace). No: Giovanny's Sign Skin: Warm, Dry, Intact Neurological: No New Focal Deficit Psy/Mental Status: Alert, Normal Affect, Normal Mood - Problem List & Annotations (1) Vaginal delivery SNOMED Code(s): 609278514 Code(s): O80 - ENCOUNTER FOR FULL-TERM UNCOMPLICATED DELIVERY Status: Acute Current Visit: Yes - Problem List Review Problem List Initiated/Reviewed/Updated: Yes - My Orders Last 24 Hours: My Active Orders 08/12/18 09:42 Ready for Discharge [RC] PER UNIT ROUTINE - Assessment Assessment:: PPD #2 s/p . - Plan Plan:: Doing well overall, BPs are normalized. Denies any headaches or visual changes. Feels well and would like to go home. Discharge instructions reviewed. Follow up at [facility] 6 weeks. Continue PNV daily. Infection and bleeding warnings reviewed. Call with any concerns.
== END 2018-08-12 11:55 | disposition home or self-care (01) | DRG 560 ==
LOC: MW.OBCHECK 20:39 → MW.OB 20:42 → MW.OBCHECK 20:46 → OBSVTOIN 22:55 → MW.OB 08-11 02:30
PROVIDERS: ADMIT Obstetrics & Gynecology; ATTEND Obstetrics & Gynecology
PROC: 10E0XZZ Delivery of Products of Conception, External Approach (ICD-10-PCS; principal; 2018-08-10)
PROC: 10907ZC Drainage of Amniotic Fluid, Therapeutic from Products of Conception, Via Natural or Artificial Opening (ICD-10-PCS; 2018-08-10)
PROC: 3E0R3BZ Introduction of Anesthetic Agent into Spinal Canal, Percutaneous Approach (ICD-10-PCS; 2018-08-10)
PROC: 00HU33Z Insertion of Infusion Device into Spinal Canal, Percutaneous Approach (ICD-10-PCS; 2018-08-10)
DX: O80 Encounter for full-term uncomplicated delivery (principal); Z37.0 Single live birth
CPT/HCPCS: 36415; 59025; 59409; 82570; 84156; 85014; 85018; 85027; 86850; 86900; 86901; A9270-GY; J2590; J7120

== ENCOUNTER 2022-03-17 07:52 | Emergency (ER) | payer BC ==
[2022-03-17] MEDS ORDERED: Sodium Chloride 0.9% 2.5 ML Syringe FLUSH PRN (08:27)
[2022-03-17] MEDS ORDERED: Ondansetron 4 MG/2 ML SDV IVPUSH ONE (08:27)
[2022-03-17] MEDS ORDERED: Sodium Chloride 0.9% 1,000 ML IV ONE (08:27)
[2022-03-17] MEDS ORDERED: Sodium Chloride 0.9% 10 ML Syringe FLUSH PRN (08:27)
[2022-03-17] MEDS ORDERED: HYDROmorphone 1 MG/ML Syringe IVPUSH ONE (08:27)
[2022-03-17 09:21] LABS: CARBON DIOXIDE,CO2 23.8 mmol/L (21.0-32.0); POTASSIUM,K 3.5 mmol/L (3.5-5.1)
[2022-03-17] MEDS ORDERED: Ketorolac 30 MG/ML SDV IVPUSH ONE (09:28)
[2022-03-17] MEDS ORDERED: HYDROmorphone 1 MG/ML Syringe IVPUSH STA (10:29)
[2022-03-17 13:25] VITALS: BP 139/75; PULSE 86
== END 2022-03-17 13:23 | disposition home or self-care (01) ==
LOC: MW.ED 07:52
DX: K80.50 Calculus of bile duct without cholangitis or cholecystitis without obstruction (principal); E66.9 Obesity, unspecified; Z88.2 Allergy status to sulfonamides; Z88.0 Allergy status to penicillin; Z68.41 Body mass index [BMI] 40.0-44.9, adult
CPT/HCPCS: 36415; 74176; 76705; 80053; 81003; 81025; 83605; 83690; 85025; 96361; 96374; 96375; 96376; 99284; J1170; J1885; J2405; J3490; J7030

== ENCOUNTER 2022-04-08 11:15 | Day surgery (SDC) | payer BC ==
[~2022-04-08 11:15] MED LIST: Albuterol 0.083% 2.5 MG/3 ML Neb Soln NEB PRN; Clindamycin Phosphate in D5W 600 MG in Premix Bag 1 BAG IV ONE; HYDROmorphone 1 MG/ML Syringe IVPUSH PRN; Lactated Ringers 1,000 ML IV SCH; Metoclopramide 10 MG/2 ML SDV IVPUSH PRN; Morphine 2 MG/ML SYRINGE IVPUSH PRN; Naloxone 0.4 MG/ML SDV IVPUSH PRN; Ondansetron 4 MG/2 ML SDV IVPUSH PRN; Sodium Chloride 0.9% 10 ML Syringe FLUSH PRN; Sodium Chloride 0.9% 2.5 ML Syringe FLUSH PRN; Sodium Chloride 0.9% 20 ML SDV IV PRN; fentaNYL 50 MCG/ML SDV IVPUSH PRN
[2022-04-08] MEDS ORDERED: Ropivacaine 0.5% 5 MG/ML 30 ML SDV ONE (11:49)
[2022-04-08] MEDS ORDERED: Famotidine 20 MG/2 ML SDV ONE (11:49)
[2022-04-08] MEDS ORDERED: propofoL 100 ML ONE (11:51)
[2022-04-08] MEDS ORDERED: fentaNYL 250 MCG/5 ML SDV ONE ×2 (11:51→12:01)
[2022-04-08] MEDS ORDERED: fentaNYL 100 MCG/2 ML SDV ONE ×2 (11:56→13:18)
[2022-04-08] MEDS ORDERED: Bupivacaine 0.5% 30 ML SDV ONE (12:32)
[2022-04-08] MEDS ORDERED: Rocuronium Bromide 50 MG/5 ML Syringe ONE (13:28)
[2022-04-08] MEDS ORDERED: Indocyanine Green 25 MG SDV ONE (13:28)
[2022-04-08] MEDS ORDERED: Glycopyrrolate 0.2 MG/ML SDV ONE (13:28)
[2022-04-08] MEDS ORDERED: Ondansetron 4 MG/2 ML SDV ONE (13:30)
[2022-04-08] MEDS ORDERED: Sugammadex Sodium 200 MG/2 ML VIAL ONE (13:30)
[2022-04-08] MEDS ORDERED: Ketorolac 30 MG/ML SDV ONE (13:36)
[2022-04-08 14:56] VITALS: BP 115/68; PULSE 59
== END 2022-04-08 15:32 | disposition home or self-care (01) ==
LOC: MW.SDS 11:15
PROVIDERS: ATTEND Surgery
DX: K80.10 Calculus of gallbladder with chronic cholecystitis without obstruction (principal); K21.9 Gastro-esophageal reflux disease without esophagitis; F41.9 Anxiety disorder, unspecified; E66.9 Obesity, unspecified; E07.9 Disorder of thyroid, unspecified; Z88.0 Allergy status to penicillin; Z88.2 Allergy status to sulfonamides; Z79.899 Other long term (current) drug therapy; Z79.890 Hormone replacement therapy; Z98.890 Other specified postprocedural states; Z68.41 Body mass index [BMI] 40.0-44.9, adult
CPT/HCPCS: 47562; 81025; J0131; J1885; J2405; J2704; J2795; J3010; J3490; J7120; 00790; 64488

== ENCOUNTER 2023-01-06 11:12 | Day surgery (SDC) | payer BC ==
[~2023-01-06 11:12] MED LIST changes: -Albuterol 0.083% 2.5 MG/3 ML Neb Soln NEB PRN; -Clindamycin Phosphate in D5W 600 MG in Premix Bag 1 BAG IV ONE; -HYDROmorphone 1 MG/ML Syringe IVPUSH PRN; +Lidocaine 2% 5 ML SDV ONE; -Metoclopramide 10 MG/2 ML SDV IVPUSH PRN; -Morphine 2 MG/ML SYRINGE IVPUSH PRN; -Naloxone 0.4 MG/ML SDV IVPUSH PRN; -Ondansetron 4 MG/2 ML SDV IVPUSH PRN; -fentaNYL 50 MCG/ML SDV IVPUSH PRN; +propofoL 50 ML ONE
[2023-01-06 13:17] VITALS: BP 113/53; PULSE 57
== END 2023-01-06 12:50 | disposition home or self-care (01) ==
LOC: MW.SDS 11:12
PROVIDERS: ATTEND Surgery
DX: K29.50 Unspecified chronic gastritis without bleeding (principal); K20.90 Esophagitis, unspecified without bleeding; E03.9 Hypothyroidism, unspecified; Z90.49 Acquired absence of other specified parts of digestive tract; Z88.0 Allergy status to penicillin; Z88.2 Allergy status to sulfonamides; Z79.890 Hormone replacement therapy; Z79.899 Other long term (current) drug therapy
CPT/HCPCS: 43239; 81025; J2704; J7120; 00731; J3490

== ENCOUNTER 2024-08-19 20:15 | Emergency (ER) | payer BC ==
[2024-08-19 20:48] VITALS: BP 144/78
[2024-08-19 21:52] LABS: BASOPHILS ABSOLUTE AUTO 0.03 K/uL (0.00-0.20); BASOPHILS PERCENT AUTO 0.5 % (0.0-1.0); EOSINOPHILS ABSOLUTE AUTO 0.18 K/uL (0.00-0.45); HEMATOCRIT 32.8 % (37.0-47.0); HEMOGLOBIN 10.1 g/dL (12.0-16.0); IMMATURE GRAN ABSOLUTE AUTO 0.02 K/uL (0.00-0.05); IMMATURE GRAN PERCENT AUTO 0.3 % (0.0-0.4); LYMPHOCYTES ABSOLUTE AUTO 1.15 K/uL (1.00-4.80); LYMPHOCYTES PERCENT AUTO 19.3 % (24.0-44.0); MEAN CORPUSCULAR HGB CONC 30.8 g/dL (32.0-36.0); MEAN CORPUSCULAR VOLUME 68.3 fL (83.0-99.0); MEAN PLATELET VOLUME 10.4 fL (9.4-12.3); MONOCYTES ABSOLUTE AUTO 0.63 K/uL (0.00-0.80); MONOCYTES PERCENT AUTO 10.6 % (0.0-8.0); NEUTROPHILS ABSOLUTE AUTO 3.95 K/uL (1.80-7.70); NEUTROPHILS PERCENT AUTO 66.3 % (41.0-71.0); PLATELET COUNT,PLT 269 K/uL (150-400); WHITE BLOOD CELL COUNT,WBC 5.96 K/uL (3.9-11.3)
[2024-08-19 22:01] LABS: BILIRUBIN,URINE NEGATIVE (NEGATIVE); COLOR,URINE YELLOW; GLUCOSE,URINE NEGATIVE (NEGATIVE); KETONES,URINE TRACE mg/dL (NEGATIVE); LEUKOCYTE ESTERASE,URINE TRACE (NEGATIVE); NITRITE,URINE NEGATIVE (NEGATIVE); OCCULT BLOOD,URINE NEGATIVE (NEGATIVE); PROTEIN,URINE NEGATIVE (NEGATIVE); UROBILINOGEN,URINE 0.2 EU/dL (<2.0)
[2024-08-19] MEDS: Ketorolac 30 MG/ML SDV IVPUSH ONE (22:01)
[2024-08-19] MEDS: Sodium Chloride 0.9% 1,000 ML IV ONE (22:02)
[2024-08-19 22:03] LABS: APPEARANCE,URINE HAZY
[2024-08-19 22:09] LABS: BACTERIA,URINE RARE (NEGATIVE); MUCUS,URINE LIGHT (NONE-MOD); RBC,URINE 0-2 (0-2/HPF); SQUAMOUS EPITHELIAL CELLS,UR FEW
[2024-08-19 22:21] LABS: A/G RATIO 1.1 (0.9-1.6); ALBUMIN 3.9 g/dL (3.4-5.0); BILIRUBIN TOTAL 1.1 mg/dL (0.2-1.0); CALCIUM 9.2 mg/dL (8.5-10.1); CARBON DIOXIDE,CO2 24.4 mmol/L (21.0-32.0); CREATININE 0.8 mg/dL (0.6-1.0); EST CRCL DRUG DOSING (CG) 84.76 mL/min; POTASSIUM,K 3.6 mmol/L (3.5-5.1); PROTEIN TOTAL,TP 7.5 g/dL (6.4-8.2)
[2024-08-19] MEDS ORDERED: diphenhydrAMINE 50 MG/ML SDV IVPUSH PRN (22:51)
[2024-08-19] MEDS: cefTRIAXone 1 GM in Water For Injection, Sterile 10 ML IVPUSH ONE (22:55)
[2024-08-19 23:17] VITALS: PULSE 89
== END 2024-08-19 23:21 | disposition home or self-care (01) ==
LOC: MW.ED 20:15
DX: N39.0 Urinary tract infection, site not specified (principal); E03.9 Hypothyroidism, unspecified; Z88.0 Allergy status to penicillin; Z88.1 Allergy status to other antibiotic agents; Z88.2 Allergy status to sulfonamides; Z79.890 Hormone replacement therapy; Z79.899 Other long term (current) drug therapy; Z90.49 Acquired absence of other specified parts of digestive tract
CPT/HCPCS: 36415; 80053; 81001; 81025; 85025; 87086; 96361; 96374; 96375; 99284; J0696; J1885; J7030; 99283